=== PATIENT | female | born 1995 | race African-American/Black ===

== ENCOUNTER 2016-05-26 15:19 | Emergency (ER) | payer MEDICAID ==
[~2016-05-26] VITALS: Ht 170.2 cm; Wt 88.0 kg
[~2016-05-26 15:19] MED LIST: IBUP800T23 PO
[2016-05-26 15:21] VITALS: BP 133/60; PULSE 84; RESP 16; TEMP 98.1; O2SAT 99
--- NOTE | 2016-05-26 15:51 | PD ---
HPI Chief Complaint: Injury Time Seen by Provider: 15:51 Travel History International Travel<30 days: No Contact w/Intl Traveler<30days: No Traveled to known affect area: No History of Present Illness HPI 21-year-old female presents to the emergency Department with complaint of left ankle and foot pain after injuring her foot and ankle while climbing down her bunk beds in her dorm room. She denies paresthesias, loss of sensation. Reports decreased range of motion secondary to pain and swelling. Has been ambulatory on the affected extremity. Has not taken any medications or drainage from his to alleviate her symptoms. No known allergies. No other modifying factors or associated signs and symptoms. PFSH Past Medical History Medical History: Denies Significant Hx ?: Not LMP: 05/26/16 Past Surgical History Surgical History: No Previous Surgery Social History Alcohol Use: Yes (OCC) Tobacco Use: No Substance Use: No Allergies-Medications (Allergen,Severity, Reaction): Coded Allergies: No Known Allergies (Unverified , 05/26/16) Reported Meds & Prescriptions Reported Meds & Active Scripts Active Ibuprofen 800 Mg Tab 800 Mg PO Q6HR PRN Review of Systems Except as stated in HPI: all other systems reviewed are Neg Physical Exam Narrative GENERAL: Well-nourished, well-developed female patient, in no acute distress SKIN: Warm and dry. HEAD: Atraumatic. Normocephalic. EYES: Pupils equal and round. No scleral icterus. No injection or drainage. ENT: Mucosa pink and moist. Airway patent. NECK: Trachea midline. CARDIOVASCULAR: Regular rate. RESPIRATORY: No accessory muscle use. GASTROINTESTINAL: Rounded. MUSCULOSKELETAL: Left ankle with point tenderness to the lateral malleolar zone and tenderness on palpation to the lateral aspect of the foot; edema to the ankle and lateral aspect of the foot; without erythema, ecchymosis; no obvious deformity; decreased range of motion. Left lower extremity supple and non- tense with 2+ pedal pulse and sensory intact. No obvious deformities. No clubbing. No cyanosis. No edema. NEUROLOGICAL: Awake and alert. Oriented 3. No obvious cranial nerve deficits. Motor grossly within normal limits. Normal speech. PSYCHIATRIC: Appropriate mood and affect; insight and judgment normal. Data Data Last Documented VS Vital Signs Date Time Temp Pulse Resp B/P Pulse Ox O2 Delivery O2 Flow Rate FiO2 05/26/16 15:21 98.1 84 16 133/60 99 Orders Ankle, Complete ([id number]) (05/26/16 15:51) Foot, Complete ([id number]) (05/26/16 15:51) Ice/Cold Pack (05/26/16 15:51) Ibuprofen (Motrin) (05/26/16 16:00) Splint Or Brace Apply/Monitor (05/26/16 16:16) Crutches (05/26/16 16:16) MDM Medical Decision Making Medical Screen Exam Complete: Yes Emergency Medical Condition: Yes Medical Record Reviewed: Yes Differential Diagnosis Ankle sprain, ankle fracture, ankle dislocation Narrative Course 21-year-old female with left ankle injury. Ibuprofen administered in the ER. Left ankle x-ray ordered. 1615: Left ankle x-ray and left foot x-ray with no acute findings. Phani bandage , ankle stirrup splint, crutches provided for support. Ibuprofen prescribed for home. Instructed patient to follow up if symptoms persist greater than 7- 10 days. Patient verbalizes understanding and agreement with treatment plan. Patient is medically cleared and stable for discharge. Discussed reasons to return to the emergency department. Instructed patient to follow up with primary care provider. Patient agrees with treatment plan. The patients vital signs are stable and the patient is stable for outpatient follow-up and treatment. Patient discharged home, stable and in no acute distress. Diagnosis Primary Impression: Sprain of left foot Qualified Code: S93.602A - Sprain of left foot, initial encounter Referrals: Primary Care Physician Patient Instructions: Ankle Sprain (ED), Ankle Stirrup Splint (ED), Crutch Instructions (ED), General Instructions Departure Forms: Tests/Procedures Additional Instructions: Tylenol or ibuprofen as directed and as needed for pain and inflammation Rest, ice, compress, and elevate extremity to decrease pain and inflammation Ankle brace for support Crutches for support Avoid aggravating activity; increase activity as tolerated Follow-up with primary care provider Return to the emergency department immediately with worsening symptoms Med/Other Pt SpecificInfo: Prescription(s) given Scripts Ibuprofen 800 Mg [id number] Mg PO Q6HR PRN (PAIN) #30 TAB Ref 0 Prov:Madelyn Salinas 05/26/16 Disposition: 01 DISCHARGE HOME Condition: Stable Madelyn Salinas May 26, 2016 15:51
[2016-05-26] MEDS ORDERED: IBUPROFEN 800 MG TAB PO ONE (16:00)
[2016-05-26] MEDS ORDERED: IBUP800T23 PO (16:01)
--- NOTE | 2016-05-26 16:08 | RADRPT ---
EXAM DATE/TIME: 05/26/2016 16:13 [facility] COMPARISON: ANKLE LEFT COMPLETE ([id number]), May 26, 2016, 16:12. INDICATIONS : Left foot pain, fell MEDICAL HISTORY : None. SURGICAL HISTORY : None. ENCOUNTER: Initial ACUITY: 1 day PAIN SCORE: 4/10 LOCATION: Left Foot FINDINGS: Three view examination of the left foot demonstrates no soft tissue swelling, dislocation, or fractur e. The tarsal bones appear intact. The interphalangeal and metatarsophalangeal joints are intact. The calcaneus is intact. Bony mineralization is normal. CONCLUSION: Unremarkable examination of the left foot. Dwain Garcia MD on May 26, 2016 at 16:07 Board Certified Radiologist. This report was verified electronically.
--- NOTE | 2016-05-26 16:08 | RADRPT ---
EXAM DATE/TIME: 05/26/2016 16:12 [facility] COMPARISON: FOOT LEFT COMPLETE ([id number]), May 26, 2016, 16:13. INDICATIONS : Left ankle pain MEDICAL HISTORY : None. SURGICAL HISTORY : None. ENCOUNTER: Initial ACUITY: 1 day PAIN SCORE: 4/10 LOCATION: Left Ankle FINDINGS: Three view exam was performed of the left ankle. The bony structures are in normal alignment. No ev idence of fracture, dislocation, or soft tissue swelling. The ankle mortise is intact. No radiopaqu e foreign bodies are seen. Bony mineralization is normal. CONCLUSION: Unremarkable examination of the left ankle. Dwain Garcia MD on May 26, 2016 at 16:06 Board Certified Radiologist. This report was verified electronically.
== END 2016-05-26 16:33 | disposition home or self-care (01) ==
LOC: NEPB 15:19
DX: S93.602A Unspecified sprain of left foot, initial encounter (principal); X58.XXXA Exposure to other specified factors, initial encounter; Y93.39 Activity, other involving climbing, rappelling and jumping off; Y92.163 Bedroom in school dormitory as the place of occurrence of the external cause
CPT/HCPCS: 73610; 73630; 99283; E0113; L1906